=== PATIENT | male | born 1995 | race Caucasian/White ===

== ENCOUNTER 2016-07-19 23:53 | Emergency (ER) | payer OTHER ==
[2016-07-20 00:01] VITALS: RESP 18; TEMP 98
[2016-07-20] MEDS ORDERED: methylPREDNISolone SOD SUCCI 125 MG/2 ML VIAL IM STA (00:22)
[2016-07-20] MEDS ORDERED: KETOROLAC 60 MG/2 ML VIAL IM STA (00:22)
[2016-07-20] MEDS ORDERED: ORPHENADRINE 30 MG/ML 2 ML VIAL IM STA (00:22)
--- NOTE | 2016-07-20 00:36 | ED ---
Back Pain HPI - General Chief Complaint: Back Pain/Injury Stated Complaint: back pain Time Seen by Provider: 07/20/16 00:16 Source: patient, RN notes reviewed Limitations: no limitations - History of Present Illness Initial Comments: 20-year-old male presents to the emergency department with a chief complaint of back pain. Patient has had multiple back surgeries he's had chronic back pain. Patient states he normally takes anti-inflammatories for this consult, and narcotics at work. Patient states he has been taking pain medication for the last few days but it just seems to be flared up he thinks it may be due to the cold weather. Patient states that it does radiate down the legs. Patient states it is much that his typical back pain and he just needs something to help get him through this. Patient states he saw spots bladder function. Patient denies any saddle anesthesia. Patient states currently also being worked up for fibromyalgia. Patient states he is just hoping to get something that will help the pain so he can start to improve. Patient states it is not having any other symptoms at this time.Patient denies any recent fever, chills, shortness of breath, chest pain, abdominal pain, nausea vomiting, numbness or tingling, dysuria or hematuria, constipation or diarrhea, headaches or visual changes, or any other current symptoms. - Related Data Previous Rx's Medication Instructions Recorded predniSONE 50 mg PO DAILY #5 tab 07/20/16 Allergies Allergy/AdvReac Type Severity Reaction Status Date / Time No Known Allergies Allergy Verified 07/20/16 00:01 Review of Systems ROS Statement: Those systems with pertinent positive or pertinent negative responses have been documented in the HPI. ROS Other: All systems not noted in ROS Statement are negative. 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 Past Psychological History: No Psychological Hx Reported Smoking Status: Never smoker Past Alcohol Use History: None Reported Past Drug Use History: None Reported General Exam Limitations: no limitations General appearance: alert, in no apparent distress Neck exam: Present: normal inspection. Absent: tenderness, meningismus, lymphadenopathy Respiratory exam: Present: normal lung sounds bilaterally. Absent: respiratory distress, wheezes, rales, rhonchi, stridor Cardiovascular Exam: Present: regular rate, normal rhythm, normal heart sounds. Absent: systolic murmur, diastolic murmur, rubs, gallop, clicks Extremities exam: Present: normal inspection, full ROM, normal capillary refill. Absent: tenderness, pedal edema, joint swelling, calf tenderness Back exam: Present: normal inspection, full ROM, tenderness (Due the lower lumbar spine) Neurological exam: Present: alert, oriented X3 Psychiatric exam: Present: normal affect, normal mood Skin exam: Present: warm, dry, intact, normal color. Absent: rash Course Vital Signs 07/19/16 23:56 Temperature 98.0 F Pulse Rate 105 H Respiratory 18 Rate Blood Pressure 154/83 O2 Sat by Pulse 100 Oximetry - Reevaluation(s) Reevaluation #1: 07/20/16 01:25 Patient having minimal improvement with the pain meds. We will give him another dose of medication prior to discharge. Medical Decision Making - Medical Decision Making 20-year-old male presents emergency Department with a chief complaint of chronic back pain. This time we did give the patient is instructed to help with the pain. Steroid Dosepak for home. We discussed follow-up and return parameters. Discussed all the patient's questions. He stated he understood he is angry and plan 70 answered. He will be discharged. Disposition Clinical Impression: Chronic back pain Disposition: HOME SELF-CARE Condition: Stable Instructions: Chronic Back Pain (ED) Additional Instructions: Please use medication as discussed. Please follow up with family doctor if symptoms have not improved over the next two days. Please return to the emergency room if your symptoms increase or worsen or for any other concerns. Prescriptions: predniSONE 50 mg PO DAILY #5 tab Referrals: Duane Campbell MD [Primary Care Provider] - 1-2 days Time of Disposition: 01:25
[2016-07-20] MEDS ORDERED: HYDROmorphone 1 MG/ML 1 ML SYRINGE IM STA (01:25)
[2016-07-20 01:50] VITALS: BP 113/74; PULSE 90
== END 2016-07-20 01:49 | disposition home or self-care (01) ==
LOC: EC 23:53
DX: M54.9 Dorsalgia, unspecified (principal); G89.29 Other chronic pain
CPT/HCPCS: 99283; 96372 ×4; J2360; J2930; J1885; J1170